=== PATIENT | male | born 1980 | race African-American/Black ===

== ENCOUNTER 2023-03-05 22:09 | Inpatient (IN) | payer OTHER ==
--- OUTSIDE RECORDS SUMMARY | 2023-03-05 22:19 | XMS REPORT | Continuity of Care Document ---
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 Acute respirator y failure with hypoxia Problem Active [facility] Obstructiv e sleep apnea with use of bilevel positive airway pressure (BPAP) Problem Active [facility] Chest pain Problem Active [facility] Malignant hypertensi on Problem Active [facility] Acute respirator y failure with hypoxia and hypercapni a Problem Active [facility] Morbid obesity Problem Active [facility] Class 3 severe obesity with serious comorbidit y and body mass index (BMI) of 60.0 to 69.[address] [facility] Prediabete s Problem Active [facility] Noncomplia nce Problem Active [facility] Pneumonia due to severe acute respirator y syndrome coronaviru s 2 (SARS-CoV- 2) [address] [facility] Hypertensi on Problem Active [facility] Sleep apnea Problem Active [facility] Dyspnea Problem Inactiv e [facility] Infection due to severe acute respirator y syndrome coronaviru s 2 (SARS-CoV- 2) Problem Inactiv e [facility] Allergies, Adverse Reactions, Alerts Allergy Name Allergy Type Status Severity Reaction(s) Onset Date Inactive Date Treating Clinician Comments Source Penicill in Allergy to substanc e Active Unknown 2017-03 00:00: 00 [facility] Social History Social Habit Start Date Stop Date Quantity Comments Source Sex Assigned At 1980 00:00:00 1980 00:00:00 Male [facility] Smoking Status Start Date Stop Date Source Smokes tobacco daily (finding) 2020-07-12 02:30:00 [facility] Medications Ordered Medication Name Filled Medication Name Start Date Stop Date Current Medication? Ordering Clinician Indication Dosage Frequency Signature (SIG) Comments Components Source Albuterol 90 Mcg/Act Hfa Inh (Proair Hfa Inh) 8.5 Gm HFA.AER.AD 07-16 09:30: 00 No 1 Every 4 Hours as needed for Dyspnea [facility] Dexamethaso ne (Decadron) 6 Mg TAB 07-16 09:30: 00 No 6mg Daily With Breakfast [facility] Acetazolami de (Diamox) 250 Mg TAB 2017-03 16:49: 00 07-12 00:00 :[address] [facility] Amlodipine Besylate (Norvasc) 10 Mg TAB 2017-03 16:49: 00 07-12 00:00 :00 No 10mg Every Morning [facility] Hydrochloro thiazide (Hydrodiuri l) 25 Mg TAB 2017-03 16:49: 00 07-12 00:00 :00 No 25mg Every Morning [facility] Vital Signs Vital Name Observation Time Observation Value Comments S ource BP Diastolic 2020-07-16 12:02:00 78 mm[Hg] [facility] BP Systolic 2020-07-16 12:02:00 134 mm[Hg] [facility] Heart Rate 2020-07-16 12:02:00 67 /min [facility] Respiratory rate 2020-07-16 12:02:00 18 /min [facility] Body Temperature 2020-07-16 12:02:00 99.0 [degF] [facility] BP Diastolic 2020-07-16 10:07:00 78 mm[Hg] [facility] BP Systolic 2020-07-16 10:07:00 134 mm[Hg] [facility] Heart Rate 2020-07-16 10:07:00 64 /min [facility] Respiratory rate 2020-07-16 10:07:00 17 /min [facility] Body Temperature 2020-07-16 10:07:00 99.2 [degF] [facility] Heart Rate 2020-07-16 09:50:00 66 /min [facility] Heart Rate 2020-07-16 07:18:00 70 /min [facility] Respiratory rate 2020-07-16 07:18:00 18 /min [facility] BP Diastolic 2020-07-16 03:30:00 88 mm[Hg] [facility] BP Systolic 2020-07-16 03:30:00 151 mm[Hg] [facility] Heart Rate 2020-07-16 03:30:00 54 /min [facility] Respiratory rate 2020-07-16 03:30:00 12 /min [facility] Body Temperature 2020-07-16 03:30:00 97.4 [degF] [facility] BP Diastolic 2020-07-15 23:43:00 80 mm[Hg] [facility] BP Systolic 2020-07-15 23:43:00 157 mm[Hg] [facility] 2020-07-15 23:43:00 72 /min [facility] Respiratory rate 2020-07-15 23:43:00 12 /min [facility] Body Temperature 2020-07-15 23:43:00 98.1 [degF] [facility] Heart Rate 2020-07-15 20:50:00 89 /min [facility] Respiratory rate 2020-07-15 20:50:00 22 /min [facility] BP Diastolic 2020-07-15 19:52:00 93 mm[Hg] [facility] BP Systolic 2020-07-15 19:52:00 146 mm[Hg] [facility] Heart Rate 2020-07-15 19:52:00 64 /min [facility] Respiratory rate 2020-07-15 19:52:00 12 /min [facility] Body Temperature 2020-07-15 19:52:00 98.3 [degF] [facility] Heart Rate 2020-07-15 19:00:00 85 /min [facility] BP Diastolic 2020-07-15 16:00:00 75 mm[Hg] [facility] BP Systolic 2020-07-15 16:00:00 140 mm[Hg] [facility] Heart Rate 2020-07-15 16:00:00 82 /min [facility] Respiratory rate 2020-07-15 16:00:00 17 /min [facility] Body Temperature 2020-07-15 16:00:00 98.1 [degF] [facility] Heart Rate 2020-07-15 13:50:00 88 /min [facility] Respiratory rate 2020-07-15 13:50:00 20 /min [facility] BP Diastolic 2020-07-15 12:00:00 82 mm[Hg] [facility] BP Systolic 2020-07-15 12:00:00 142 mm[Hg] [facility] Heart Rate 2020-07-15 12:00:00 62 /min [facility] Respiratory rate 2020-07-15 12:00:00 17 /min [facility] Body Temperature 2020-07-15 12:00:00 98.0 [degF] [facility] Heart Rate 2020-07-15 09:32:00 65 /min [facility] BP Diastolic 2020-07-15 08:00:00 81 mm[Hg] [facility] BP Systolic 2020-07-15 08:00:00 140 mm[Hg] [facility] Heart Rate 2020-07-15 08:00:00 65 /min [facility] Respiratory rate 2020-07-15 08:00:00 17 /min [facility] Heart Rate 2020-07-15 07:50:00 60 /min [facility] Respiratory rate 2020-07-15 07:50:00 26 /min [facility] Heart Rate 2020-07-15 04:55:00 82 /min [facility] BP Diastolic 2020-07-15 03:57:00 88 mm[Hg] [facility] BP Systolic 2020-07-15 03:57:00 159 mm[Hg] [facility] Heart Rate 2020-07-15 03:57:00 54 /min [facility] Respiratory rate 2020-07-15 03:57:00 12 /min [facility] Body Temperature 2020-07-15 03:57:00 97.3 [degF] [facility] Heart Rate 2020-07-15 01:22:00 80 /min [facility] Respiratory rate 2020-07-15 01:22:00 20 /min [facility] BP Diastolic 2020-07-14 23:15:00 92 mm[Hg] [facility] BP Systolic 2020-07-14 23:15:00 136 mm[Hg] [facility] Heart Rate 2020-07-14 23:15:00 77 /min [facility] Respiratory rate 2020-07-14 23:15:00 12 /min [facility] Body Temperature 2020-07-14 23:15:00 97.8 [degF] [facility] Heart Rate 2020-07-14 21:02:00 88 /min [facility] Respiratory rate 2020-07-14 21:02:00 20 /min [facility] Heart Rate 2020-07-14 20:10:00 88 /min [facility] BP Diastolic 2020-07-14 19:57:00 92 mm[Hg] [facility] BP Systolic 2020-07-14 19:57:00 160 mm[Hg] [facility] Heart Rate 2020-07-14 19:57:00 70 /min [facility] Respiratory rate 2020-07-14 19:57:00 14 /min [facility] Body Temperature 2020-07-14 19:57:00 99.1 [degF] [facility] BP Diastolic 2020-07-14 16:00:00 81 mm[Hg] [facility] BP Systolic 2020-07-14 16:00:00 137 mm[Hg] [facility] Heart Rate 2020-07-14 16:00:00 69 /min [facility] Respiratory rate 2020-07-14 16:00:00 19 /min [facility] Body Temperature 2020-07-14 16:00:00 98.4 [degF] [facility] Heart Rate 2020-07-14 14:22:00 50 /min [facility] Respiratory rate 2020-07-14 14:22:00 18 /min [facility] BP Diastolic 2020-07-14 12:00:00 84 mm[Hg] [facility] BP Systolic 2020-07-14 12:00:00 150 mm[Hg] [facility] Heart Rate 2020-07-14 12:00:00 66 /min [facility] Respiratory rate 2020-07-14 12:00:00 21 /min [facility] Body Temperature 2020-07-14 12:00:00 97.6 [degF] [facility] Heart Rate 2020-07-14 08:57:00 98 /min [facility] Heart Rate 2020-07-14 08:14:00 98 /min [facility] Respiratory rate 2020-07-14 08:14:00 18 /min [facility] BP Diastolic 2020-07-14 08:00:00 92 mm[Hg] [facility] BP Systolic 2020-07-14 08:00:00 149 mm[Hg] [facility] Heart Rate 2020-07-14 08:00:00 62 /min [facility] Respiratory rate 2020-07-14 08:00:00 20 /min [facility] Body Temperature 2020-07-14 08:00:00 97.1 [degF] [facility] BP Diastolic 2020-07-14 06:03:00 87 mm[Hg] [facility] BP Systolic 2020-07-14 06:03:00 147 mm[Hg] [facility] Heart Rate 2020-07-14 06:03:00 57 /min [facility] Respiratory rate 2020-07-14 06:03:00 20 /min [facility] BP Diastolic 2020-07-14 03:41:00 94 mm[Hg] [facility] BP Systolic 2020-07-14 03:41:00 144 mm[Hg] [facility] Heart Rate 2020-07-14 03:41:00 56 /min [facility] Respiratory rate 2020-07-14 03:41:00 19 /min [facility] Body Temperature 2020-07-14 03:41:00 98.6 [degF] [facility] Heart Rate 2020-07-14 02:24:00 74 /min [facility] Heart Rate 2020-07-14 01:36:00 75 /min [facility] Respiratory rate 2020-07-14 01:36:00 20 /min [facility] BP Diastolic 2020-07-14 00:00:00 78 mm[Hg] [facility] BP Systolic 2020-07-14 00:00:00 123 mm[Hg] [facility] Heart Rate 2020-07-14 00:00:00 72 /min [facility] Respiratory rate 2020-07-14 00:00:00 19 /min [facility] Body Temperature 2020-07-14 00:00:00 98.4 [degF] [facility] BP Diastolic 2020-07-13 20:30:00 77 mm[Hg] [facility] BP Systolic 2020-07-13 20:30:00 136 mm[Hg] [facility] Heart Rate 2020-07-13 20:30:00 79 /min [facility] Respiratory rate 2020-07-13 20:30:00 19 /min [facility] BP Diastolic 2020-07-13 19:56:00 77 mm[Hg] [facility] BP Systolic 2020-07-13 19:56:00 136 mm[Hg] [facility] Heart Rate 2020-07-13 19:56:00 79 /min [facility] Respiratory rate 2020-07-13 19:56:00 19 /min [facility] Body Temperature 2020-07-13 19:56:00 98.4 [degF] [facility] Heart Rate 2020-07-13 19:51:00 81 /min [facility] Respiratory rate 2020-07-13 19:51:00 20 /min [facility] BP Diastolic 2020-07-13 16:00:00 81 mm[Hg] [facility] BP Systolic 2020-07-13 16:00:00 138 mm[Hg] [facility] Heart Rate 2020-07-13 16:00:00 82 /min [facility] Respiratory rate 2020-07-13 16:00:00 20 /min [facility] Body Temperature 2020-07-13 16:00:00 98.6 [degF] [facility] Heart Rate 2020-07-13 15:22:00 99 /min [facility] Respiratory rate 2020-07-13 15:22:00 20 /min [facility] BP Diastolic 2020-07-13 12:00:00 64 mm[Hg] [facility] BP Systolic 2020-07-13 12:00:00 129 mm[Hg] [facility] Heart Rate 2020-07-13 12:00:00 66 /min [facility] Respiratory rate 2020-07-13 12:00:00 20 /min [facility] Body Temperature 2020-07-13 12:00:00 98.7 [degF] [facility] Heart Rate 2020-07-13 08:36:00 68 /min [facility] BP Diastolic 2020-07-13 08:00:00 86 mm[Hg] [facility] BP Systolic 2020-07-13 08:00:00 156 mm[Hg] [facility] Heart Rate 2020-07-13 08:00:00 68 /min [facility] Respiratory rate 2020-07-13 08:00:00 18 /min [facility] Body Temperature 2020-07-13 08:00:00 98.1 [degF] [facility] BP Diastolic 2020-07-13 04:25:00 61 mm[Hg] [facility] BP Systolic 2020-07-13 04:25:00 146 mm[Hg] [facility] Heart Rate 2020-07-13 04:25:00 68 /min [facility] Respiratory rate 2020-07-13 04:25:00 16 /min [facility] Heart Rate 2020-07-13 01:52:00 75 /min [facility] Respiratory rate 2020-07-13 01:52:00 18 /min [facility] BP Diastolic 2020-07-12 23:30:00 75 mm[Hg] [facility] BP Systolic 2020-07-12 23:30:00 126 mm[Hg] [facility] Heart Rate 2020-07-12 23:30:00 81 /min [facility] Respiratory rate 2020-07-12 23:30:00 20 /min [facility] Body Temperature 2020-07-12 23:30:00 97.5 [degF] [facility] Heart Rate 2020-07-12 21:00:00 85 /min [facility] Respiratory rate 2020-07-12 21:00:00 20 /min [facility] BP Diastolic 2020-07-12 19:40:00 79 mm[Hg] [facility] BP Systolic 2020-07-12 19:40:00 139 mm[Hg] [facility] Heart Rate 2020-07-12 19:40:00 81 /min [facility] Respiratory rate 2020-07-12 19:40:00 18 /min [facility] Body Temperature 2020-07-12 19:40:00 98.4 [degF] [facility] Heart Rate 2020-07-12 19:00:00 85 /min [facility] BP Diastolic 2020-07-12 16:01:00 73 mm[Hg] [facility] BP Systolic 2020-07-12 16:01:00 140 mm[Hg] [facility] Heart [facility] 2020-07-12 16:01:00 80 /min [facility] Respiratory rate 2020-07-12 16:01:00 22 /min [facility] BP Diastolic 2020-07-12 16:00:00 63 mm[Hg] [facility] BP Systolic 2020-07-12 16:00:00 132 mm[Hg] [facility] Heart Rate 2020-07-12 16:00:00 76 /min [facility] Respiratory rate 2020-07-12 16:00:00 22 /min [facility] Body Temperature 2020-07-12 16:00:00 97.9 [degF] [facility] Heart Rate 2020-07-12 12:39:00 89 /min [facility] Respiratory rate 2020-07-12 12:39:00 16 /min [facility] BP Diastolic 2020-07-12 12:01:00 105 mm[Hg] [facility] BP Systolic 2020-07-12 12:01:00 155 mm[Hg] [facility] Heart Rate 2020-07-12 12:01:00 89 /min [facility] Body Temperature 2020-07-12 12:01:00 97.6 [degF] [facility] BP Diastolic 2020-07-12 11:02:00 64 mm[Hg] [facility] BP Systolic 2020-07-12 11:02:00 130 mm[Hg] [facility] Heart [facility] 2020-07-12 11:02:00 86 /min [facility] BP Diastolic 2020-07-12 10:45:00 113 mm[Hg] [facility] BP Systolic 2020-07-12 10:45:00 163 mm[Hg] [facility] Heart Rate 2020-07-12 10:45:00 81 /min [facility] BP Diastolic 2020-07-12 10:30:00 97 mm[Hg] [facility] BP Systolic 2020-07-12 10:30:00 150 mm[Hg] [facility] Heart Rate 2020-07-12 10:30:00 74 /min [facility] BP Diastolic 2020-07-12 10:15:00 74 mm[Hg] [facility] BP Systolic 2020-07-12 10:15:00 136 mm[Hg] [facility] Heart Rate 2020-07-12 10:15:00 92 /min [facility] BP Diastolic 2020-07-12 10:00:00 97 mm[Hg] [facility] BP Systolic 2020-07-12 10:00:00 158 mm[Hg] [facility] Heart Rate 2020-07-12 10:00:00 98 /min [facility] BP Diastolic 2020-07-12 08:00:00 96 mm[Hg] [facility] BP Systolic 2020-07-12 08:00:00 140 mm[Hg] [facility] Heart Rate 2020-07-12 08:00:00 96 /min [facility] Respiratory rate 2020-07-12 08:00:00 20 /min [facility] Body Temperature 2020-07-12 08:00:00 97.7 [degF] [facility] Heart Rate 2020-07-12 02:30:00 94 /min [facility] BP Diastolic 2020-07-12 02:20:00 89 mm[Hg] [facility] BP Systolic 2020-07-12 02:20:00 155 mm[Hg] [facility] Heart Rate 2020-07-12 02:20:00 94 /min [facility] Respiratory rate 2020-07-12 02:20:00 20 /min [facility] Body Temperature 2020-07-12 02:20:00 98.1 [degF] [facility] BP Diastolic 2020-07-12 01:45:00 77 mm[Hg] [facility] BP Systolic 2020-07-12 01:45:00 134 mm[Hg] [facility] Heart Rate 2020-07-12 01:45:00 84 /min [facility] Respiratory rate 2020-07-12 01:45:00 22 /min [facility] Body Temperature 2020-07-12 01:45:00 97.9 [degF] [facility] BP Diastolic 2020-07-12 00:30:00 77 mm[Hg] [facility] BP Systolic 2020-07-12 00:30:00 134 mm[Hg] [facility] Heart Rate 2020-07-12 00:30:00 84 /min [facility] Respiratory rate 2020-07-12 00:30:00 22 /min [facility] Body Temperature 2020-07-12 00:30:00 97.9 [degF] [facility] Heart Rate 2020-07-11 23:35:00 79 /min [facility] Respiratory rate 2020-07-11 23:35:00 14 /min [facility] BP Diastolic 2020-07-11 23:30:00 90 mm[Hg] [facility] BP Systolic 2020-07-11 23:30:00 151 mm[Hg] [facility] Heart Rate 2020-07-11 23:30:00 85 /min [facility] Heart Rate 2020-07-11 23:28:00 72 /min [facility] Respiratory rate 2020-07-11 23:28:00 14 /min [facility] BP Diastolic 2020-07-11 23:00:00 75 mm[Hg] [facility] BP Systolic 2020-07-11 23:00:00 158 mm[Hg] [facility] Heart Rate 2020-07-11 23:00:00 77 /min [facility] Heart Rate 2020-07-11 22:58:00 77 /min [facility] Respiratory rate 2020-07-11 22:58:00 13 /min [facility] BP Diastolic 2020-07-11 22:30:00 77 mm[Hg] [facility] BP Systolic 2020-07-11 22:30:00 169 mm[Hg] [facility] Heart Rate 2020-07-11 22:30:00 80 /min [facility] BP Diastolic 2020-07-11 22:28:00 82 mm[Hg] [facility] [employer] BP Systolic 2020-07-11 22:28:00 168 mm[Hg] [facility] [employer] Heart Rate 2020-07-11 22:28:00 82 /min [facility] Respiratory rate 2020-07-11 22:28:00 13 /min [facility] [employer] BP Diastolic 2020-07-11 21:35:00 95 mm[Hg] [facility] [employer] BP Systolic 2020-07-11 21:35:00 163 mm[Hg] [facility] [employer] Heart Rate 2020-07-11 21:35:00 90 /min [facility] Respiratory rate 2020-07-11 21:35:00 28 /min [facility] [employer] Body Temperature 2020-07-11 21:35:00 97.6 [degF] [facility] Procedures Procedure Date / Time Performed Performing Clinicia n Source Arterial puncture 2020-07-13 00:00:00 [facility] Occupational therapy evaluation and treatment 2020-07-12 00:00:00 [facility] Physical therapy evaluation and treatment 2020-07-12 00:00:00 [facility] ECG (electrocardiogram) 2020-07-11 00:00:00 [facility] [employer] X-ray of chest, two views 2020-07-11 00:00:00 [facility] [employer] Encounters Start Date/Time End Date/Time Encounter Type Admission Type Attending [facility] Care Department Encounter ID Source 2020-07-11 21:24:00 2020-07-16 14:13:00 Discharged Inpatient [facility] [id number] [facility] [employer] Results Test Description Test Time Test Comments Results Result Co mments Source [facility] [employer] D-dimer FEU [id number] 03:42:00* Test Item Value Reference Range Interpretation Comme [facility] D-Dimer (test code = 00667-7) 307 0-243 [facility] (moles/volume)2020-07-14 03:42:00* Test Item Value Reference Range Interpretation Comme nts Sodium Level (test code = 2951-2) 134 136-145 [facility] potassium [facility] (moles/volume)2020-07-14 03:42:00* Test Item Value Reference Range Interpretation Comme nts Potassium Level (test code = 2823-3) 4.3 3.5-5.1 [facility] chloride measurement (moles/volume)2020-07-14 03:42:00* Test Item Value Reference Range Interpretation Comme nts Chloride Level (test code = 2075-0) 93 101-111 [facility]2 [id number] 03:42:00* Test Item Value Reference Range Interpretation Comme nts Carbon Dioxide Level (test c ode = 2027-11) 35 21-31 [facility] plasma urea nitrogen measurement (mass/volume)2020-07-14 03:42:00* Test Item Value Reference Range Interpretation Comme nts Blood Urea Nitrogen (test co de = 3094-0) 15 7-25 [facility] plasma creatinine measurement (mass/volume)2020-07-14 03:42:00* Test Item Value Reference Range Interpretation Comme nts Creatinine (test code = 2160-0) 0.7 0.7-1.3 [facility]GFR/BSA pred.black SerPlBld [id number] 03:42:00* Test Item Value Reference Range Interpretation Comme nts Estimated GFR ( Ameri can) (test code = 85865-2) >60 [facility]EGFR non- [id number] 03:42:00* Test Item Value Reference Range Interpretation Comme nts Estimated GFR (Non- A merican (test code = 95805-7) >60 [facility] or plasma glucose measurement (mass/volume)2020-07-14 03:42:00* Test Item Value Reference Range Interpretation Comme nts Glucose Level (test code = 2345-7) 196 70-110 [facility] or plasma calcium measurement (mass/volume)2020-07-14 03:42:00* Test Item Value Reference Range Interpretation Comme nts Calcium Level (test code = 29397-4) 9.2 8.6-10.3 [facility] or plasma magnesium measurement (mass/volume)2020-07-14 03:42:00* Test Item Value Reference Range Interpretation Comme nts Magnesium Level (test code = 32570-5) 1.9 1.7-2.5 [facility] or plasma total bilirubin measurement (mass/volume) 2020-07-14 03:42:00* Test Item Value Reference Range Interpretation Comme nts Total Bilirubin (test code = 1975-2) 0.4 0.3-1.0 [facility] or plasma aspartate aminotransferase measurement (enzymatic activity/volume)2020-07-14 03:42:00* Test Item Value Reference Range Interpretation Comme nts Aspartate Amino Transf (AST/ SGOT) (test code = 1920-8) 11 12-39 [facility] or plasma alanine aminotransferase measurement (enzymatic activity/volume)2020-07-14 03:42:00* Test Item Value Reference Range Interpretation Comme nts Alanine Aminotransferase (AL T/SGPT) (test code = 1742-6) 14 17-63 [facility] or plasma protein measurement (mass/volume)2020-07-14 03:42:00* Test Item Value Reference Range Interpretation Comme nts Total Protein (test code = 2885-2) 8.1 6.4-8.9 [facility] or plasma albumin measurement (mass/volume)2020-07-14 03:42:00* Test Item Value Reference Range Interpretation Comme nts Albumin (test code = 1751-7) 3.4 3.5-5.7 [facility] or plasma alkaline phosphatase measurement (enzymatic activity/volume)2020-07-14 03:42:00* Test Item Value Reference Range Interpretation Comme nts Alkaline Phosphatase (test c ode = 6768-6) 113 34-104 [facility] or plasma ferritin measurement (mass/volume)2020-07-14 03:42:00* Test Item Value Reference Range Interpretation Comme nts Ferritin (test code = 2276-4) 56 23.9-336.2 [facility] or plasma C reactive protein measurement (mass/volume) 2020-07-14 03:42:00* Test Item Value Reference Range Interpretation Comme nts C-Reactive Protein, Quantita tive (test code = 1988-5) 1.79 0.02-0.75 [facility] Health[facility]um or plasma procalcitonin measurement (mass/volume)2020-07-14 03:42:00* Test Item Value Reference Range Interpretation Comme nts Procalcitonin (test code = 10251-5) 0.01 [facility] HealthAutomated blood leukocyte count (number/volume)2020-07-14 03:42:00* Test Item Value Reference Range Interpretation Comme [facility] White Blood Count (test code = 6690-2) 15.4 3.6-11.2 [facility] HealthBlood erythrocytes automated count (number/volume)2020-07-14 03:42:00* Test Item Value Reference Range Interpretation Comme [facility] Red Blood Count (test code = 789-8) 5.62 4.06-5.63 [facility] Health[facility] hemoglobin measurement (mass/volume)2020-07-14 03:42:00* Test Item Value Reference Range Interpretation Comme [facility] Hemoglobin (test code = 718-7) 16.1 12.5-16.5 [facility] HealthAutomated blood hematocrit (volume fraction)2020-07-14 03:42:00* Test Item Value Reference Range Interpretation Comme [facility] Hematocrit (test code = 4544-3) 49.3 36.7-47.1 [facility] HealthAutomated erythrocyte mean corpuscular volume (MCV) measurement 2020-07-14 03:42:00* Test Item Value Reference Range Interpretation Comme [facility] Mean Corpuscular Volume (cara t code = 787-2) 87.7 78-98 [facility] HealthAutomated erythrocyte mean corpuscular hemoglobin (mass per erythrocyte)2020-07-14 03:42:00* Test Item Value Reference Range Interpretation Comme [facility] Mean Corpuscular Hemoglobin (test code = 785-6) 28.7 26-34 [facility] HealthAutomated erythrocyte mean corpuscular hemoglobin concentration (MCHC) measurement (mass/volume)2020-07-14 03:42:00* Test Item Value Reference Range Interpretation Comme [facility] Mean Corpuscular Hemoglobin Concent (test code = 786-4) 32.7 31-35 [facility] HealthAutomated erythrocyte distribution width bzpci8089-38-44 03:42:00 * Test Item Value Reference Range Interpretation Comme [facility] Red Cell Distribution Width (test code = 788-0) 16.4 12.5-14.5 [facility] HealthAutomated blood platelet count (count/volume)2020-07-14 03:42:00 * Test Item Value Reference Range Interpretation Comme nts Platelet Count (test code = 777-3) 383 130-400 [facility] HealthAutomated blood platelet mean volume lkynkwsgulf2440-58-21 03:42:00* Test Item Value Reference Range Interpretation Comme nts Mean Platelet Volume (test c ode = 76881-8) 7.6 7.4-10.4 [facility] HealthAutomated blood neutrophil count as percentage of total dcneynazgz5778-78-46 03:42:00* Test Item Value Reference Range Interpretation Comme nts Neutrophils (%) (Auto) (test code = 770-8) 86.1 43.3-76.6 [facility] HealthAutomated blood lymphocyte count as percentage of total srlotflzby1097-03-41 03:42:00* Test Item Value Reference Range Interpretation Comme nts Lymphocytes (%) (Auto) (test code = 736-9) 7.0 16-43.5 [facility] HealthAutomated blood monocyte count as percentage of total leukocytes 2020-07-14 03:42:00* Test Item Value Reference Range Interpretation Comme nts Monocytes (%) (Auto) (test c ode = 5905-5) 6.3 4.5-12.5 [facility] HealthAutomated blood eosinophil count as percentage of total dultmxasds7886-13-80 03:42:00* Test Item Value Reference Range Interpretation Comme nts Eosinophils (%) (Auto) (test code = 713-8) 0.1 0.6-7.9 [facility] HealthAutomated blood basophil count as percentage of total leukocytes 2020-07-14 03:42:00* Test Item Value Reference Range Interpretation Comme nts Basophils (%) (Auto) (test c ode = 706-2) 0.5 0.2-1.4 [facility] HealthAutomated blood neutrophil count (number/volume)2020-07-14 03:42:00* Test Item Value Reference Range Interpretation Comme nts Neutrophils # (Auto) (test c ode = 751-8) 13.30 1.8-7.8 [facility] HealthAutomated blood lymphocyte count (number/volume)2020-07-14 03:42:00* Test Item Value Reference Range Interpretation Comme nts Lymphocytes # (Auto) (test c ode = 731-0) 1.10 1.0-3.0 [facility] count (number/volume)2020-07-14 03:42:00 * Test Item Value Reference Range Interpretation Comme [facility] Monocytes # (Auto) (test code = 742-7) 1.00 0.3-1.0 [facility]Autom[facility] blood eosinophil oqfwc7383-08-32 03:42:00* Test Item Value Reference Range Interpretation Comme [facility] Eosinophils # (Auto) (test c ode = 711-2) 0.00 0.0-0.5 [facility] CenterAutom[facility] blood basophil count (number/volume)2020-07-14 03:42:00 * Test Item Value Reference Range Interpretation Comme [facility] Basophils # (Auto) (test code = 704-7) 0.10 0.0-0.1 [facility] CenterDetermination of inhaled oxygen concentration (volume fraction) 2020-07-13 09:29:00* Test Item Value Reference Range Interpretation Comme [facility] FiO2 (test code = 3150-0) 69 [facility] CenterHepatitis B e ab ser/plas qual by MEI0072-50-56 09:29:00* Test Item Value Reference Range Interpretation Comme [facility] Blood Gas Liter Flow (test c ode = Blood Gas Liter Flow) 60.00 [facility] CenterArterial blood pH clvcqhaouhu4971-75-61 09:29:00* Test Item Value Reference Range Interpretation Comme [facility] Arterial Blood pH (test code = 2744-1) 7.23 7.350-7. 450 [facility] CenterArterial blood partial pressure of carbon hvhfqeh8738-61-55 09:29:00* Test Item Value Reference Range Interpretation Comme [facility] Arterial Blood Partial Press ure CO2 (test code = 2019-8) 99.6 35.0-45.0 [facility] CenterArterial blood partial pressure of oxygen txygcqpdruf5074-00-41 09:29:00* Test Item Value Reference Range Interpretation Comme [facility] Arterial Blood Partial Press ure O2 (test code = 2703-7) 105.4 84.0-105.0 [facility] CenterArterial blood bicarbonate measurement (moles/volume)2020-07-13 09:29:00* Test Item Value Reference Range Interpretation Comme [facility] Arterial Blood HCO3 (test co de = 1960-4) 40.6 22.0-26.0 [facility] HealthArterial blood base excess ibbboikmhnudx7633-83-36 09:29:00* Test Item Value Reference Range Interpretation Comme [facility] Arterial Blood Base Excess ( test code = 1925-7) 8.0 -2.0-2.0 [facility] HealthArterial blood hemoglobin hnxmkbqeheu5622-33-00 09:29:00* Test Item Value Reference Range Interpretation Comme [facility] Arterial Blood Hemoglobin (t est code = 582572670) 16.6 13.6-17.5 [facility] HealthArterial blood oxygen saturation hyyaesggqzu6952-46-98 09:29:00* Test Item Value Reference Range Interpretation Comme [facility] Arterial Blood Oxygen Satura tion (test code = 2708-6) 97.3 95.0-98.0 [facility] HealthArterial blood carboxyhemoglobin rgwlxpfxnzp8339-16-69 09:29:00* Test Item Value Reference Range Interpretation Comme [facility] Arterial Blood Carboxyhemogl obin (test code = 2030-5) 0.6 0.5-1.5 [facility] CenterAr[facility] blood methemoglobin/total ofsuaoukav2043-06-98 09:29:00 * Test Item Value Reference Range Interpretation Comme [facility] Arterial Blood Methemoglobin (test code = 2615-3) 0.50 0.4-1.1 [facility] HealthArterial blood oxyhemoglobin/total hemoglobin joost0113-52-01 09:29:00* Test Item Value Reference Range Interpretation Comme [facility] Arterial Blood Oxyhemoglobin (test code = 2714-4) 96.2 94.0-98.0 [facility] HealthHepatitis B e ab ser/plas qual by [id number] 09:29:00* Test Item Value Reference Range Interpretation Comme [facility] Oxygen Delivery Device (test code = Oxygen Delivery Device) hfnc [facility] HealthHepatitis B e ab ser/plas qual by [id number] 09:29:00* Test Item Value Reference Range Interpretation Comme [facility] Blood Gas Temperature (test code = Blood Gas Temperature) 37.0 [facility] HealthHepatitis B e ab ser/plas qual by MDG9230-36-82 09:29:00* Test Item Value Reference Range Interpretation Comme [facility] Blood Gas Specimen Type (cara t code = Blood Gas Specimen Type) BLDA [facility] HealthHepatitis B e ab ser/plas qual by [id number] 09:29:00* Test Item Value Reference Range Interpretation Comme nts Blood Gas Puncture Site (cara t code = Blood Gas Puncture Site) Right Radial DWAIN Mann's test prior to collection of specimen for arterial blood gas agwgytqblsg8138-73-28 09:29:00* Test Item Value Reference Range Interpretation Comme nts Charlie Test (test code = 46030-2) NA [facility] HealthComm critical results Rml5829-34-78 09:29:00* Test Item Value Reference Range Interpretation Comme nts Blood Gas Critical Value Panchito led To (test code = 09402-2) rn DWAIN HealthHepatitis B e ab ser/plas qual by BSM0704-64-09 09:29:00* Test Item Value Reference Range Interpretation Comme nts N/A (test code = N/A) Yes [facility] HealthHepatitis B e ab ser/plas qual by [id number] 09:29:00* Test Item Value Reference Range Interpretation Comme nts Arterial Blood Collected by (test code = Arterial Blood Collected by) sh DWAIN HealthHepatitis B e ab ser/plas qual by TJS8426-52-10 09:29:00* Test Item Value Reference Range Interpretation Comme [facility] Blood Audit Practice Intern Identific ation (test code = Blood Audit Practice Intern Identification) 22 [facility] HealthHepatitis B e ab ser/plas qual by VBW4320-09-82 09:29:00* Test Item Value Reference Range Interpretation Comme [facility] Blood Gas Instrument (test c ode = Blood Gas Instrument) [address] [facility] HealthUrine total bilirubin detection by test zkorn6454-51-85 07:55:00 * Test Item Value Reference Range Interpretation Comme nts Urine Bilirubin (test code = 5770-3) NEGATIVE NEGATIVE [facility] HealthUrine urobilinogen measurement by test strip (mass/volume) 2020-07-12 07:55:00* Test Item Value Reference Range Interpretation Comme nts Urine Urobilinogen (test cod e = 03251-2) 2+ 0.2-1.0 [facility] HealthUrine leukocyte esterase detection by cflpxtjo8366-68-62 07:55:00 * Test Item Value Reference Range Interpretation Comme nts Urine Leukocyte Esterase (te st code = 5799-2) TRACE NEGATIVE [facility] HealthUrine ascorbate measurement by test strip (mass/volume)2020-07-12 07:55:00* Test Item Value Reference Range Interpretation Comme nts Urine Ascorbic Acid Level (t est code = 5768-7) Negative Negative [facility] HealthAutomated urine sediment erythrocyte count by microscopy (number/high power field)2020-07-12 07:55:00* Test Item Value Reference Range Interpretation Comme nts Urine RBC (test code = 08295-2) 7 0-2 [facility] HealthAutomated leukocytes count in urine sediment by microscopy high power field (number/area)2020-07-12 07:55:00* Test Item Value Reference Range Interpretation Comme nts Urine WBC (test code = 5821-4) 17 0-5 [facility] HealthAutomated squamous epithelial cells count in urine sediment by microscopy low power field (number/area)2020-07-12 07:55:00* Test Item Value Reference Range Interpretation Comme nts Urine Squamous Epithelial Ce lls (test code = 65866-7) 1 0-5 [facility] HealthBacteria detection in urine sediment by light microscopy 2020-07-12 07:55:00* Test Item Value Reference Range Interpretation Comme nts Urine Bacteria (test code = 31850-4) TRACE NONE SEEN [facility] C[facility]nt 04 DYQ-Mnz0924-55-14 07:55:00* Test Item Value Reference Range Interpretation Comme nts Urine Culture Indicated (cara t code = 8265-1) NO [facility] HealthUrine color dwaickbycqjdz8762-08-23 07:55:00* Test Item Value Reference Range Interpretation Comme nts Urine Color (test code = 5778-6) YELLOW [facility] HealthManual urine appearance duftvvfqmlxal6930-04-60 07:55:00* Test Item Value Reference Range Interpretation Comme nts Urine Appearance (test code = 5767-9) Clear [facility] HealthUrine pH measurement by test ukfro6345-53-87 07:55:00* Test Item Value Reference Range Interpretation Comme nts Urine pH (test code = 5803-2) 6.0 5.0-8.0 [facility] HealthSp Gr Ur Rohpe7782-68-70 07:55:00* Test Item Value Reference Range Interpretation Comme nts Urine Specific [place] (test code = 5811-5) 1.028 1.005-1.030 [facility] HealthUrine protein measurement by automated test strip (mass/volume) 2020-07-12 07:55:00* Test Item Value Reference Range Interpretation Comme nts Urine Protein (test code = 67858-2) NEGATIVE NEGATIVE [facility] HealthUrine glucose measurement by test strip (mass/volume)2020-07-12 07:55:00* Test Item Value Reference Range Interpretation Comme nts Urine Glucose (UA) (test cod e = 5792-7) NEGATIVE NEGATIVE [facility] HealthUrine ketones measurement by test strip (mass/volume)2020-07-12 07:55:00* Test Item Value Reference Range Interpretation Comme nts Urine Ketones (test code = 5797-6) NEGATIVE NEGATIVE [facility] HealthUrine erythrocytes count by automated test strip (number/volume) 2020-07-12 07:55:00* Test Item Value Reference Range Interpretation Comme nts Urine Occult Blood (test cod e = 04445-3) NEGATIVE NEGATIVE [facility] HealthUrine nitrite detection by automated test vxulf7454-95-85 07:55:00* Test Item Value Reference Range Interpretation Comme nts Urine Nitrite (test code = 47881-0) NEGATIVE NEGATIVE [facility] HealthBlood estimated average glucose determination by estimation from glycated hemoglobin (mass/volume)2020-07-12 02:30:00* Test Item Value Reference Range Interpretation Comme [facility] Estimated Average Glucose (e AG) (test code = 03663-4) 145.5 74-118 [facility] Gyo0293-82-59 02:30:00* Test Item Value Reference Range Interpretation Comme [facility] Hemoglobin A1c (test code = 4548-4) 6.7 [facility] HealthSerum or plasma thyrotropin measurement with detection limit of 0.005 mIU/L or less (units/volume)2020-07-12 02:30:00* Test Item Value Reference Range Interpretation Comme [facility] Thyroid Stimulating Hormone (TSH) (test code = 14733-8) 2.09 0.34-5.60 [facility] HealthSerum or plasma lactate dehydrogenase measurement (enzymatic activity/volume) by lactate to pyruvate tlobnrwl1728-55-84 01:30:00* Test Item Value Reference Range Interpretation Comme [facility] Lactate Dehydrogenase (test code = 82667-2) 216 100-215 [facility] TkfVw-hMew4407-81-14 01:30:00* Test Item Value Reference Range Interpretation Comme nts Total Creatine Kinase (test code = 2157-6) 37 49-397 [facility] HealthTroponin I LomKg-jNqh9883-91-14 01:30:00* Test Item Value Reference Range Interpretation Comme nts Troponin I (test code = 28121-9) < 0.03 0.00-0.04 [facility] HealthSerum or plasma natriuretic peptide B measurement (mass/volume) 2020-07-12 01:30:00* Test Item Value Reference Range Interpretation Comme nts B-Type Natriuretic Peptide ( test code = 14145-9) 36 0-100 [facility] HealthProthrombin time (PT) in platelet poor jbzzhv6746-85-34 01:30:00 * Test Item Value Reference Range Interpretation Comme nts Prothrombin Time (test code = 5902-2) 13.2 9.6-13.6 [facility] HealthINR in Platelet poor plasma by Coagulation proxv5914-92-46 01:30:00* Test Item Value Reference Range Interpretation Comme nts Prothromb Time International Ratio (test code = 6301-6) 1.1 1.0-1.4 [facility] HealthLactate DgcFt-hAmg7540-48-13 21:57:00* Test Item Value Reference Range Interpretation Comme nts Lactic Acid Level (test code = 2524-7) 1.2 0.5-2.0 [facility] HealthHAdV DNA Nph Ql ALONDRA+xuz-kvzng1266-64-13 21:57:00* Test Item Value Reference Range Interpretation Comme nts Adenovirus (PCR) (test code = 74020-2) Not Detected NotDetected [facility] CenterKrtiuxITLF-DgV-4 RNA Resp Ql ALONDRA+ntzyx2629-31-06 21:57:00* Test Item Value Reference Range Interpretation Comme nts Coronavirus (COVID-19)(PCR) (test code = 16764-0) Detected NotDetected [facility] HealthHCoV 229E RNA Nph Ql ALONDRA+tla-xjssk5637-28-13 21:57:00* Test Item Value Reference Range Interpretation Comme nts Coronavirus Type 229E (PCR) (test code = 71610-5) Not Detected NotDetected [facility] CenterHCoV HKU1 RNA Nph Ql ALONDRA+bsm-sdwdg4418-80-13 21:57:00* Test Item Value Reference Range Interpretation Comme nts Coronavirus Type HKU1 (PCR) (test code = 88434-4) Not Detected NotDetected [facility] HealthHCoV NL63 RNA Nph Ql ALONDRA+kuu-qassl1764-86-13 21:57:00* Test Item Value Reference Range Interpretation Comme nts Coronavirus Type NL63 (PCR) (test code = 89539-9) Not Detected NotDetected [facility] HealthHCoV OC43 RNA Nph Ql ALONDRA+gln-xusjj7993-91-13 21:57:00* Test Item Value Reference Range Interpretation Comme nts Coronavirus Type OC43 (PCR) (test code = 00299-2) Not Detected NotDetected [facility] HealthhMPV RNA Nph Ql ALONDRA+ojc-gbntr8362-29-13 21:57:00* Test Item Value Reference Range Interpretation Comme nts Human Metapneumovirus (PCR) (test code = 86313-2) Not Detected NotDetected [facility] HealthRV+EV RNA Nph Ql ALONDRA+cse-tfmdk2803-28-13 21:57:00* Test Item Value Reference Range Interpretation Comme nts Enterovirus/Rhinovirus (PCR) (test code = 64494-4) Not Detected NotDetected [facility] HealthFLUAV RNA Nph Ql ALONDRA+vgy-nzfoe7407-60-13 21:57:00* Test Item Value Reference Range Interpretation Comme nts Influenza Virus Type A (PCR) (test code = 30466-4) Not Detected NotDetected [facility] HealthFLUAV H3 RNA Nph Ql ALONDRA+onq-trlbl0981-07-13 21:57:00* Test Item Value Reference Range Interpretation Comme nts Influenza Type A (H3) (PCR) (test code = 17889-1) Not Detected NotDetected [facility] HealthFLUAV H1 2009 [place]aker RNA Nph ALONDRA+ylz-azwoc7337-84-13 21:57:00* Test Item Value Reference Range Interpretation Comme nts Influenza Type A (H1N1/09) ( PCR) (test code = 12847-9) Not Detected NotDetected [facility] HealthFLUAV H1 RNA Nph Ql ALONDRA+lmv-tuern0244-09-13 21:57:00* Test Item Value Reference Range Interpretation Comme nts Influenza Type A (H1) (PCR) (test code = 81932-3) Not Detected NotDetected [facility] HealthFLUBV RNA Nph Ql ALONDRA+ccx-rdcmn6700-15-13 21:57:00* Test Item Value Reference Range Interpretation Comme nts Influenza Virus Type B (PCR) (test code = 39540-2) Not Detected NotDetected [facility] HealthHPIV1 RNA Nph Ql ALONDRA+wjt-oljmu1969-30-13 21:57:00* Test Item Value Reference Range Interpretation Comme nts Parainfluenza Type 1 (PCR) ( test code = 92266-4) Not Detected NotDetected [facility] HealthHPIV2 RNA Nph Ql ALONDRA+hss-gafrh9496-49-13 21:57:00* Test Item Value Reference Range Interpretation Comme nts Parainfluenza Type 2 (PCR) ( test code = 00332-6) Not Detected NotDetected [facility] HealthHPIV3 RNA Nph Ql ALONRDA+hck-qzezv1065-53-13 21:57:00* Test Item Value Reference Range Interpretation Comme nts Parainfluenza Type 3 (PCR) ( test code = 45829-0) Not Detected NotDetected [facility] HealthHPIV4 RNA Nph Ql ALONDRA+gxi-cnuyw3696-16-13 21:57:00* Test Item Value Reference Range Interpretation Comme nts Parainfluenza Type 4 (PCR) ( test code = 22557-9) Not Detected NotDetected [facility] HealthRSV RNA Nph Ql ALONDRA+jgh-upvfk3298-20-13 21:57:00* Test Item Value Reference Range Interpretation Comme nts Respiratory Syncytial Virus (PCR) (test code = 39355-8) Not Detected NotDetected [facility] CenterB pert.PT prom reg Nph Ql ALONDRA+oqq-emxrt9536-34-13 21:57:00* Test Item Value Reference Range Interpretation Comme nts Bordetella pertussis DNA (PC R) (test code = 81776-1) Not Detected NotDetected [facility] CenterB parap ZF9639 DNA Nph Ql ALONDRA+tye-digzx8981-28-13 21:57:00* Test Item Value Reference Range Interpretation Comme nts Bordetella parapertussis DNA (PCR) (test code = 26051-9) Not Detected NotDetected [facility] CenterC pneum DNA Nph Ql ALONDRA+kbi-cmicc8462-94-13 21:57:00* Test Item Value Reference Range Interpretation Comme nts Chlamydia pneumoniae DNA (PC R) (test code = 02178-4) Not Detected NotDetected DWAIN CarvajalM pneumo DNA Nph Ql ALONDRA+cit-sthzc2415-52-13 21:57:00* Test Item Value Reference Range Interpretation Comme nts Mycoplasma pneumoniae DNA (P CR) (test code = 80531-9) Not Detected NotDetected DWAIN 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-87-71 21:57:00* Test Item Value Reference Range Interpretation Comme nts N/A (test code = 52321-7) No DWAIN CarvajalPatient has symptoms for condition of qqqknvky9880-50-51 21:57:00 * Test Item Value Reference Range Interpretation Comme nts N/A (test code = 94718-9) Yes DWAIN CarvajalPt [facility] centeredcg4999-32-30 21:57:00* Test Item Value Reference Range Interpretation Comme nts N/A (test code = 20963-2) Yes DWAIN CarvajalPatient was admitted to ICU for fkdatwmbs1815-11-41 21:57:00* Test Item Value Reference Range Interpretation Comme nts N/A (test code = 55996-7) No DWAIN CarvajalPatient resides in congregate care bozawbr8833-63-52 21:57:00* Test Item Value Reference Range Interpretation Comme nts N/A (test code = 99113-4) No DWAIN HealthBacterial blood dkzearl8912-53-70 21:57:00* Test Item Value Reference Range Interpretation Comme nts Blood Culture (test code = 600-7) No growth after 5 days [facility] ULO-Mzf1762-99-13 21:55:00* Test Item Value Reference Range Interpretation Comme nts N/A (test code = 8264-4) YES DWAIN [facility]alSerlovel[facility] Cmnt QJG-Fft4016-24-13 21:55:00* Test Item Value Reference Range Interpretation Comme nts Manual Differential (test co de = 8265-1) YES DWAIN CarvajalManual blood neutrophils/100 xcudvzmerc1859-90-62 21:55:00* Test Item Value Reference Range Interpretation Comme nts Neutrophils % (Manual) (test code = 82437-4) 67 52-62 [facility] HealthManual blood band neutrophils form/100 tbwfgmzwuc9476-01-89 21:55:00* Test Item Value Reference Range Interpretation Comme nts Band Neutrophils % (Manual) (test code = 764-1) 11 5-11 [facility] HealthManual blood lymphocytes/100 xqneqxofmx7481-93-59 21:55:00* Test Item Value Reference Range Interpretation Comme nts Lymphocytes % (Manual) (test code = 737-7) 14 35-43 [facility] HealthManual blood monocyte count as percentage of leukocytes (number fraction)2020-07-11 21:55:00* Test Item Value Reference Range Interpretation Comme nts Monocytes % (Manual) (test c ode = 744-3) 4 3-5 [facility] HealthManual blood eosinophil count as percentage of total leukocytes 2020-07-11 21:55:00* Test Item Value Reference Range Interpretation Comme nts Eosinophils % (Manual) (test code = 714-6) 3 2-4 [facility] HealthBlood plasma cells/100 inkfvezvmz9181-40-68 21:55:00* Test Item Value Reference Range Interpretation Comme nts Plasma Cells % (test code = 13176-8) 1 [facility] HealthBlood platelets count by estimate (number/volume)2020-07-11 21:55:00* Test Item Value Reference Range Interpretation Comme nts Platelet Estimate (test code = 43383-3) Adequate Adequate [facility] HealthBlood erythrocyte morphology finding cezqrzifwxkuqd1131-08-31 21:55:00* Test Item Value Reference Range Interpretation Comme nts Red Blood Cell Morphology (t est code = 6742-1) Abnormal Normal [facility] HealthBlood anisocytosis detection by light goptvairth3301-08-41 21:55:00* Test Item Value Reference Range Interpretation Comme nts Anisocytosis (test code = 702-1) 1+ [facility] HealthBlood polychromasia detection by light nbqxkkftpm2816-43-53 21:55:00* Test Item Value Reference Range Interpretation Comme nts Polychromasia (test code = 91408-3) 1+ [facility] HealthBlood ovalocytes detection by light uucgzeitkw3025-42-41 21:55:00 * Test Item Value Reference Range Interpretation Comme nts Ovalocytes (test code = 774-0) 1+ [facility] HealthWhole blood leukocyte morphology finding nwllpqjtiialhg0486-98-72 21:55:00* Test Item Value Reference Range Interpretation Comme nts White Blood Cell Morphology (test code = 46043-1) Abnormal Normal [facility] HealthBlood smudge cells detection by light tevmjhxiqt4907-58-86 21:55:00* Test Item Value Reference Range Interpretation Comme nts Smudge Cells (test code = 7798-2) Slight [facility] HealthBacteria identification by respiratory cxbtpcy1738-96-28 21:45:00 * Test Item Value Reference Range Interpretation Comme nts Respiratory Culture (test code = 82560-0) Str dysgalactiae S equisimilis [facility]
[2023-03-05] MEDS ORDERED: IPRATROPIUM BROM 0.5MG/2.5ML ONE (23:17)
[2023-03-05] MEDS ORDERED: ALBUTEROL 2.5 MG/3 ML NEB SOL ONE (23:17)
[2023-03-05] MEDS ORDERED: METHYLPREDNISOLONE 125 MG INJ ONE (23:17)
[2023-03-05 23:31] LABS: Absolute Lymphocytes (CBC) 1.9 K/uL (0.7-4.9); Hematocrit 41.1 % (39.6-49.0); Lymphocytes % 22.5 % (15.3-44.8); MCV 84.7 fL (80-100); MPV 7.7 fL (7.6-11.3); Platelets 220 thou/uL (152-406); RBC Red Blood Cell Count 4.85 M/uL (4.33-5.43)
[2023-03-06] LABS: Potassium 3.6 mEq/L (3.5-5.1); Troponin High Sensitivity 15.1 pg/mL (<58.9)
[2023-03-06 00:24] LABS: SARS-COV-2 RT PCR NEGATIVE (NEGATIVE)
[2023-03-06] MEDS ORDERED: ONDANSETRON 4 MG/2 ML VIAL IV PRN (00:38)
[2023-03-06] MEDS ORDERED: ACETAMINOPHEN 500 MG TAB PO PRN (00:38)
--- NOTE | 2023-03-06 00:39 | EDPHYS ---
Physician Documentation [facility] [place] Name: Brenden Kay Age: 42 yrs Sex: Male : 1980 Arrival Date: 03/05/2023 Time: 22:09 Bed 20 Private MD: ED Physician John Greco HPI: 03/05 23:26 This 42 yrs old Black Male presents to ER via Ambulatory with complaints of Shortness kb Of Breath. 23:26 Patient reports cough, congestion and shortness of breath that started 6 days ago. kb Reports fever at the onset of symptoms but that has resolved. States he went [place] and his oxygen saturation was 82% so they told him to come here. Patient reports history of COPD and pneumonia. States this feels similar to when he had pneumonia in the past.. Historical: - Allergies: 22:27 PENICILLINS; kl - Home Meds: 22:27 Atrovent Inhl [Active]; Albuterol Inhl [Active]; Lasix Oral [Active]; kl - PMHx: 22:27 Pneumonia; Chronic obstructive lung disease; kl - PSHx: 22:27 None; kl - Immunization history:: Adult Immunizations not immunized. - Social history:: Smoking status: Patient/guardian denies using tobacco, Stopped _ months ago 3. ROS: 23:26 Abdomen/GI: Negative for abdominal pain, nausea, vomiting, diarrhea, and constipation, kb 23:26 Constitutional: Positive for fever, 23:26 Respiratory: Positive for cough, shortness of breath, 23:26 All other systems are negative, Exam: 23:26 Constitutional: This is a well developed, well nourished patient who is awake, alert, kb and in no acute distress. Head/Face: Normocephalic, atraumatic. ENT: Moist Mucous membranes Cardiovascular: Regular rate Abdomen/GI: Soft, non-tender. No distention Skin: Warm, dry with normal turgor. Normal color. MS/ Extremity: Pulses equal, no cyanosis. Neurovascular intact. Full, normal range of motion. Neuro: Awake and alert, GCS 15, oriented to person, place, time, and situation. Moves all extremities. Normal gait. 23:26 Respiratory: the patient does not display signs of respiratory distress, Respirations: normal, Breath sounds: wheezing: expiratory that is mild, is heard in the right lower lobe and right posterior lower lobe, Vital Signs: 22:23 BP 149 / 80; Pulse 88; Resp 22; Temp 98(TE); kl 22:23 Pulse 88; Pulse Ox 87% on R/A; kl 03/06 00:00 BP 160 / 73; Pulse 74; Resp 16; Pulse Ox 93% on 2 lpm NC; jb4 01:45 BP 140 / 67; Pulse 87; Resp 20; Pulse Ox 91% on 2 lpm NC; jb4 MDM: 03/05 22:18 Patient medically screened. kb 23:26 Differential diagnosis: Chronic Obstructive Pulmonary Disease Flu, COVID, pneumonia. kb Data reviewed: vital signs, nurses notes. 03/06 00:37 Consideration of Admission/Observation Patient was admitted/placed on observation. kb Escalation of care including admission/observation considered. Management of patient was discussed with the following: Hospitalist: Dr Magallanes accepts pt for admission. Counseling: I had a detailed discussion with the patient and/or guardian regarding the historical points, exam findings, and any diagnostic results supporting the discharge/admit diagnosis, lab results, radiology results, the need for further work-up and treatment in the hospital. 03/05 22:29 Order name: CBC with Diff; Complete Time: 23:53 kb 03/05 22:29 Order name: Basic Metabolic Panel; Complete Time: 00:03 kb 03/05 22:30 Order name: Troponin HS; Complete Time: 00:03 kb 03/05 23:22 Order name: COVID-19/FLU A+B; Complete Time: 00:37 EDMS 03/06 00:44 Order name: Urinalysis w/ reflexes EDMS 03/06 00:44 Order name: CBC with Automated Diff EDMS 03/06 00:44 Order name: CBC with Automated Diff EDMS 03/06 00:44 Order name: Comprehensive Metabolic Panel EDMS 03/06 00:44 Order name: Comprehensive Metabolic Panel EDMS 03/05 22:30 Order name: XRAY Chest (1 view) kb 03/05 22:30 Order name: EKG; Complete Time: 23:03 kb 03/05 22:29 Order name: IV Start; Complete Time: 22:56 kb 03/05 22:30 Order name: Cardiac monitoring; Complete Time: 00:10 kb 03/05 22:30 Order name: EKG - Nurse/Tech; Complete Time: 00:10 kb 03/05 22:30 Order name: Labs collected and sent; Complete Time: 22:57 kb 03/05 22:30 Order name: O2 Per Protocol; Complete Time: 22:46 kb 03/05 22:30 Order name: O2 Sat Monitoring; Complete Time: 22:46 kb Administered Medications: 03/05 23:09 Drug: MethylPrednisoLONE IVP 125 mg IVP once Route: IVP; Site: right antecubital; jb4 23:09 Drug: Albuterol Inhalation 2.5 mg Inhalation once Route: Inhalation; jb4 23:09 Drug: Ipratropium Inhalation Aerosol 0.5 mg Inhalation once Route: Inhalation; jb4 Disposition: 03/06 00:31 Co-signature as Attending Physician, John Greco MD I agree with the assessment sp4 and plan of care. I reviewed the patient's care provided by Advanced Practice Provider \T\ agree w/ the diagnosis \T\ care plan. I personally saw the pt \T\ performed a substantive portion of the visit, incldng all aspects of the (History/Exam/Medical Decision Making). Disposition Summary: 03/06/23 00:39 Hospitalization Ordered Notes: Hospitalization Status: Observation kb Provider: Dennis Magallanes Condition: Stable kb Problem: new kb Symptoms: are unchanged kb Bed/Room Type: Standard kb Location: Telemetry/MedSurg (observation)(03/06/23 13:19) em1 Room Assignment: 415(03/06/23 13:19) em1 Diagnosis - Influenza due to identified novel influenza A virus - B kb - COPD/ Chronic obstructive pulmonary disease with (acute) exacerbation kb - Hypoxia kb Forms: - Medication Reconciliation Form kb - SBAR form kb - Leadership Thank You Letter kb Signatures: Dispatcher [employer] EDMS Mariann Woodall, SÁNCHEZ BLEDSOE-Cande Burris RN Alonso Morales em1 Jhonny Israel RN RN jb4 Potepalov, Sergey, MD MD sp4 Corrections: (The following items were deleted from the chart) 03/05 23:22 23:03 Influenza Screen (A \T\ B)+BA.LAB.BRZ ordered. EDMS EDMS 23:22 23:03 SARS-COV-2 RT PCR+MOL.LAB.BRZ ordered. EDMS EDMS 03/06 00:38 00:37 Counseling: I had a detailed discussion with the patient and/or guardian elver regarding the historical points, exam findings, and any diagnostic results supporting the discharge/admit diagnosis, lab results, radiology results, the need for outpatient follow up, a family practitioner, to return to the emergency department if symptoms worsen or persist or if there are any questions or concerns that arise at home, elver :47 00:39 Telemetry/MedSurg (observation) elver :47 00:39 elver 13:19 01:47 [facility] ER HOLD kl em1 13:19 01:47 [facility]- em1
--- NOTE | 2023-03-06 00:39 | ER ---
Nurse's Notes [facility] Name: Brenden Kay Age: 42 yrs Sex: Male : 1980 Arrival Date: 03/05/2023 Time: 22:09 Bed 20 Private MD: Diagnosis: Influenza due to identified novel influenza A virus-B;COPD/ Chronic obstructive pulmonary disease with (acute) exacerbation;Hypoxia Presentation: 03/05 22:23 Chief complaint: Patient states: SOB cough congestion x 6 days. Coronavirus screen: Vaccine status: Patient reports receiving the 1st dose of the Covid vaccine. Patient reports having had a previously documented Covid positive illness. x 3. Ebola Screen: Patient negative for fever greater than or equal to 101.5 degrees Fahrenheit, and additional compatible Ebola Virus Disease symptoms. Initial Sepsis Screen: Does the patient meet any 2 criteria? No. Patient's initial sepsis screen is negative. Does the patient have a suspected source of infection? Yes: Productive cough/pneumonia. Risk Assessment: Do you want to hurt yourself or someone else? Patient reports no desire to harm self or others. 22:23 Method Of Arrival: Ambulatory 22:23 Acuity: FRANCESCO 3 Triage Assessment: 22:29 General: Appears uncomfortable, Behavior is cooperative. Pain: Denies pain. Respiratory: Reports shortness of breath at rest on exertion Onset: The symptoms/episode began/occurred gradually, the patient has moderate shortness of breath. Historical: - Allergies: 22:27 PENICILLINS; - Home Meds: 22:27 Atrovent Inhl [Active]; Albuterol Inhl [Active]; Lasix Oral [Active]; kl - PMHx: 22:27 Pneumonia; Chronic obstructive lung disease; - PSHx: 22:27 None; kl - Immunization history:: Adult Immunizations not immunized. - Social history:: Smoking status: Patient/guardian denies using tobacco, Stopped _ months ago 3. Screenin/07 01:57 [facility] ED Fall Risk Assessment (Adult) History of falling in the last 3 months, jb4 including since admission No falls in past 3 months (0 pts) Confusion or Disorientation No (0 pts) Score/Fall Risk Level 0 - 2 = Low Risk Oriented to surroundings, Maintained a safe environment. Abuse screen: Denies threats or abuse. Nutritional screening: No deficits noted. Tuberculosis screening: No symptoms or risk factors identified. Assessment: 03/05 22:35 General: Appears in no apparent distress. uncomfortable, Behavior is calm, cooperative, jb4 appropriate for age. Pain: Denies pain. Neuro: Level of Consciousness is awake, alert, obeys commands, Oriented to person, place, time, situation. Cardiovascular: Patient's skin is warm and dry. Respiratory: Airway is patent Respiratory effort is even, unlabored, Respiratory pattern is regular, symmetrical. GI: No signs and/or symptoms were reported involving the gastrointestinal system. : No signs and/or symptoms were reported regarding the genitourinary system. EENT: No signs and/or symptoms were reported regarding the EENT system. Derm: Skin is intact, Skin is dry, Skin is normal, Skin temperature is warm. Musculoskeletal: Circulation, motion, and sensation intact. Range of motion: intact in all extremities. 23:00 Reassessment: Patient appears in no apparent distress at this time. Patient and/or jb4 family updated on plan of care and expected duration. Pain level reassessed. Patient is alert, oriented x 3, equal unlabored respirations, skin warm/dry/pink. 03/06 00:00 Reassessment: Patient appears in no apparent distress at this time. Patient and/or jb4 family updated on plan of care and expected duration. Pain level reassessed. Patient is alert, oriented x 3, equal unlabored respirations, skin warm/dry/pink. 01:00 Reassessment: Patient appears in no apparent distress at this time. Patient and/or jb4 family updated on plan of care and expected duration. Pain level reassessed. Patient is alert, oriented x 3, equal unlabored respirations, skin warm/dry/pink. 01:56 Reassessment: Patient appears in no apparent distress at this time. Patient and/or jb4 family updated on plan of care and expected duration. Pain level reassessed. Patient is alert, oriented x 3, equal unlabored respirations, skin warm/dry/pink. Vital Signs: 03/05 22:23 BP 149 / 80; Pulse 88; Resp 22; Temp 98(TE); kl 22:23 Pulse 88; Pulse Ox 87% on R/A; kl 03/06 00:00 BP 160 / 73; Pulse 74; Resp 16; Pulse Ox 93% on 2 lpm NC; jb4 01:45 BP 140 / 67; Pulse 87; Resp 20; Pulse Ox 91% on 2 lpm NC; jb4 ED Course: 03/05 22:14 Patient arrived in ED. mr 22:18 Mariann Woodall FNP-C is [facility]. kb 22:18 John Greco MD is Attending Physician. kb 22:27 Triage completed. kl 23:29 XRAY Chest (1 view) In Process Unspecified. EDMS 03/06 00:24 Jhonny Israel, RN is Primary Nurse. jb4 00:39 Dennis Magallanes MD is Hospitalizing Provider. kb 01:57 Patient has correct armband on for positive identification. Bed in low position. Call jb4 light in reach. Side rails up X 1. 01:57 No provider procedures requiring assistance completed. Patient admitted, IV remains in jb4 place. 07:05 Provided Education on: ADMISSION. db Administered Medications: 03/05 23:09 Drug: MethylPrednisoLONE IVP 125 mg IVP once Route: IVP; Site: right antecubital; jb4 23:09 Drug: Albuterol Inhalation 2.5 mg Inhalation once Route: Inhalation; jb4 23:09 Drug: Ipratropium Inhalation Aerosol 0.5 mg Inhalation once Route: Inhalation; jb4 Medication: 03/06 07:05 VIS not applicable for this client. db Outcome: 00:39 Decision to Hospitalize by Provider. kb 01:57 Admitted to ER Hold. Please see [facility] for further documentation. jb4 01:57 Condition: stable 01:57 Discharge instructions given to patient, Instructed on the need for admit, Demonstrated understanding of instructions, 14:03 Admitted to Tele accompanied by tech, via stretcher, with oxygen, Report called to ARUNA butt 14:03 Patient left the ED. db Signatures: Dispatcher [employer] EDMS Mariann Woodall FNP-C FNP-Cande Burris, Sirisha Mays RN, [facility] Reg Jhonny Israel, RN FABIO jbLorena Bojorquez RN RN db
[2023-03-06] MEDS ORDERED: GUAIFENESIN/CODEINE 5ML UCUP PO PRN (00:42)
[2023-03-06] MEDS: METHYLPREDNISOLONE 40 MG INJ IV SCH ×3 (01:00→16:06)
--- NOTE | 2023-03-06 01:34 | P.HP ---
Certification for Inpatient Patient admitted to: Inpatient With expected LOS: >2 Midnights Practitioner: I am a practitioner with admitting privileges, knowledge of patient current condition, hospital course, and medical plan of care. Services: Services provided to patient in accordance with Admission requirements found in Title 42 Section 412.3 of the Code of Federal Regulations Patient History Date of Service: 03/06/23 Reason for admission: SOB History of Present Illness: 42 yrs old AAM with past medical history of COPD, and CHF, obesity who came to ER with shortness of breath which has been going on for the last 1 week and has been progressively worsening. [place]. Started having fever and upper respiratory tract like symptoms 7 days ago and has been progressively worsening. He was evaluated in outside and found to have saturation of 82% and was instructed him to come to our ER for admission . Patient also complains of cough which is productive with mucoid expectoration associated with congestion and shortness of breath which is worse with minimal exertion. Denies any chest pain. Patient was assessed in the ER and was found to have influenza B And COPD exacerbation and was admitted for further management Home medications list reviewed: Yes - Past Medical/Surgical History Past Medical History: Reviewed- Non-Contributory -: COPD Past Surgical History: Reviewed- Non-Contributory - Family History Family History: Reviewed- Non-Contributory - Social History Smoking Status: Current some day smoker Review of Systems 10-point ROS is otherwise unremarkable General: Fever, Sweats, Weakness, Malaise Eyes: Unremarkable ENT: Unremarkable Respiratory: Cough, Shortness of Breath Cardiovascular: Edema Gastrointestinal: Unremarkable Genitourinary: Unremarkable Musculoskeletal: Unremarkable Neurological: Unremarkable Physical Examination - Vital Signs Temperature: 99.8 F Blood Pressure: 142/78 Pulse: 78 Respirations: 18 Pulse Ox (%): 91 - Physical Exam General: Alert, Oriented x3, Mild distress, Obese HEENT: Atraumatic, Normocephalic Neck: Supple, No Thyromegaly Respiratory: Diminished, Crackles/rales, Expiratory wheezes Cardiovascular: Regular rate/rhythm, Normal S1 S2, No murmurs Capillary refill: <2 Seconds Gastrointestinal: Soft and benign, Non-distended, W/out hepatosplenomegaly Musculoskeletal: No clubbing, No swelling Integumentary: No rashes, No breakdown Neurological: Normal speech, Normal strength at 5/5 x4 extr, Normal tone, Sensa tion intact, Cranial nerves 3-12 intact Lymphatics: No axilla or inguinal lymphadenopathy - Studies Laboratory Data (last 24 hrs) 03/05/23 03/05/23 22:54 22:54 WBC 8.30 Hgb 13.5 L Hct 41.1 Plt Count 220 Sodium 133 L Potassium 3.6 BUN 9 Creatinine 1.05 Glucose 136 H Assessment and Plan - Problems (Diagnosis) (1) COPD exacerbation Current Visit: Yes Status: Acute Plan: Monitor on telemetry Start on bronchodilators Start also on steroids Continuous pulse oximetry Antitussives (2) Acute hypoxic respiratory failure Current Visit: Yes Status: Acute Plan: Oxygen supplementation We will try to wean down oxygen requirement Continue steroids and bronchodilators (3) Influenza B Current Visit: Yes Status: Acute Plan: Influenza B is positive Started on Tamiflu Supportive management with antitussives and pain control (4) Obesity Current Visit: Yes Status: Chronic Plan: Advise lifestyle modification Discharge Plan: Home Plan to discharge in: 48 Hours - Advance Directives Does patient have a Living Will: No Does patient have a Durable POA for Healthcare: No - Code Status/Comfort Care Code Status: Full Code Time Spent Managing Pts Care (In Minutes): 45
[2023-03-06 02:06] VITALS: BMI 55.7
[2023-03-06] MEDS: IPRATROPIUM BROM 0.5MG/2.5ML NEB SCH ×4 (02:20→19:55)
[2023-03-06] MEDS: ALBUTEROL 2.5 MG/3 ML NEB SOL NEB SCH ×4 (02:20→19:55)
[2023-03-06] MEDS ORDERED: POTASSIUM 25 MEQ EFFERV TAB PO ONE (08:00)
[2023-03-06] MEDS ORDERED: ALBUTEROL 2.5 MG/3 ML NEB SOL ONE ×2 (08:04→13:49)
[2023-03-06] MEDS ORDERED: IPRATROPIUM BROM 0.5MG/2.5ML ONE ×2 (08:04→13:49)
[2023-03-06] MEDS: OSELTAMIVIR 75 MG CAP PO SCH ×2 (09:00→19:23)
[2023-03-06] MEDS: ENOXAPARIN 40 MG/0.4 ML SQ SCH (09:00)
--- NOTE | 2023-03-06 10:22 | RAD REPORT ---
EXAM DESCRIPTION: RAD - Chest Single View - 03/05/2023 11:27 pm CLINICAL HISTORY: Cough;COPD. COMPARISON: None. TECHNIQUE: Single view AP chest radiograph(s). FINDINGS: Mild diffuse pulmonary interstitial prominence. No consolidation identified. No pleural ef fusion. No pneumothorax. Nonenlarged cardiomediastinal silhouette. No significant osseous abnormality . IMPRESSION: Mild diffuse pulmonary interstitial prominence. No consolidation identified. Electronically signed by: Rochelle Rodrigez MD 03/05/2023 11:33 PM [employer] OPERATOR Due to temporary technical issues with the PACS/Fluency reporting system, reports are being signed by the in house radiologist without review as a courtesy to ensure prompt reporting. The interpreting r adiologist is fully responsible for the content of the report.
[2023-03-06] MEDS ORDERED: INFLUENZA VACCINE (for 6+ mo) 0.5 ML DOSE IMVAC ONE (12:00)
--- NOTE | 2023-03-06 12:31 | P.PN ---
Subjective Date of Service: 03/06/23 Chief Complaint: SOB Pt is resting comfortably in bed. He is using 4L BNC, but he uses 2L at home. Getting steroid and tamiflu. No complaints. Review of Systems 10-point ROS is otherwise unremarkable General: Unremarkable Eyes: Unremarkable ENT: Unremarkable Respiratory: Shortness of Breath, SOB with Excertion Cardiovascular: Unremarkable Gastrointestinal: Unremarkable Genitourinary: Unremarkable Musculoskeletal: Unremarkable Integumentary: Unremarkable Neurological: Unremarkable Lymphatics: Unremarkable Physical Examination - Vital Signs Temperature: 96.9 F Blood Pressure: 131/69 Pulse: 61 Respirations: 16 Pulse Ox (%): 95 - Physical Exam General: Alert, In no apparent distress, Oriented x3, Cooperative, Obese (Morbidly obese) HEENT: Atraumatic, Normocephalic, PERRLA Neck: Supple, 2+ carotid pulse no bruit Respiratory: Clear to auscultation bilaterally, Normal air movement Cardiovascular: Normal pulses, Normal S1 S2, Edema Capillary refill: <2 Seconds Gastrointestinal: Normal bowel sounds, Soft and benign, Non-distended Musculoskeletal: No clubbing, No swelling Integumentary: No rashes, No breakdown Neurological: Normal gait, Normal speech, Normal strength at 5/5 x4 extr Lymphatics: No axilla or inguinal lymphadenopathy - Studies Laboratory Data (last 24 hrs) 03/05/23 03/05/23 22:54 22:54 WBC 8.30 Hgb 13.5 L Hct 41.1 Plt Count 220 Sodium 133 L Potassium 3.6 BUN 9 Creatinine 1.05 Glucose 136 H Assessment And Plan - Plan Flu B: Will continue tamiflu and oxygen. Acute COPD exacerbation: Due to Flu. Will continue solumedrol, Tamiflu and 4L BNC. Consulted pulm. Pt uses 2L BNC at home. Acute resp failure with hypsoxia; Due to Flu B and COPD. Will continue treatment listed above. Hyponatremia: Na is 133. Will monitor NA level. Morbid obesity: Pt was advised to lose weight. Discharge Plan: Home Plan to discharge in: 24 Hours - Code Status/Comfort Care Code Status Assessed: Yes Code Status: Full Code
[2023-03-06] MEDS ORDERED: POTASSIUM CL SA 10 MEQ TAB PO ONE (15:00)
[2023-03-06 17:02] LABS: Specific Gravity 1.018 (1.005-1.030); Urine Bacteria None Seen /HPF (<20); Urine Bilirubin NEGATIVE (Negative); Urine Blood Negative (Negative); Urine Clarity Clear (Clear); Urine Color Light-Yellow (Yellow); Urine Glucose NEGATIVE (Negative); Urine Mucus Slight /HPF (None Seen); Urine Protein TRACE (Negative); Urine RBC <5 /HPF (None Seen); Urine Urobilinogen Normal (Normal); Urine pH 6.5 (5.0-7.0)
[2023-03-07] MEDS: METHYLPREDNISOLONE 40 MG INJ IV SCH ×3 (00:20→16:07)
[2023-03-07] MEDS: ALBUTEROL 2.5 MG/3 ML NEB SOL NEB SCH ×4 (01:18→19:33)
[2023-03-07] MEDS: IPRATROPIUM BROM 0.5MG/2.5ML NEB SCH ×4 (01:18→19:33)
[2023-03-07] MEDS: ENOXAPARIN 40 MG/0.4 ML SQ SCH (07:22)
[2023-03-07] MEDS: OSELTAMIVIR 75 MG CAP PO SCH ×2 (07:22→19:46)
[2023-03-07 07:41] LABS: Absolute Lymphocytes (CBC) 1.8 K/uL (0.7-4.9); Hematocrit 41.3 % (39.6-49.0); Lymphocytes % 11.1 % (15.3-44.8); Platelets 252 thou/uL (152-406)
[2023-03-07 08:01] LABS: Albumin 2.5 g/dL (3.4-5.0); Bilirubin Total 0.3 mg/dL (0.2-1.0); Potassium 4.2 mEq/L (3.5-5.1)
--- NOTE | 2023-03-07 12:45 | P.PN ---
Subjective Date of Service: 03/07/23 Chief Complaint: SOB Pt is resting comfortably in bed. He is using 2L BNC and he uses 2L at home. Getting steroid and tamiflu. He will need oxygen that will last through out his drive to [place]. No complaints. Review of Systems 10-point ROS is otherwise unremarkable General: Unremarkable Eyes: Unremarkable ENT: Unremarkable Respiratory: Unremarkable Cardiovascular: Unremarkable Gastrointestinal: Unremarkable Genitourinary: Unremarkable Musculoskeletal: Unremarkable Integumentary: Unremarkable Neurological: Unremarkable Lymphatics: Unremarkable Physical Examination - Vital Signs Temperature: 97.1 F Blood Pressure: 117/69 Pulse: 63 Respirations: 20 Pulse Ox (%): 95 - Physical Exam General: In no apparent distress, Oriented x3, Cooperative HEENT: Atraumatic, Normocephalic, PERRLA Neck: Supple, 2+ carotid pulse no bruit Respiratory: Clear to auscultation bilaterally, Normal air movement Cardiovascular: No edema, Normal pulses, Normal S1 S2 Capillary refill: <2 Seconds Gastrointestinal: Normal bowel sounds, Soft and benign, Non-distended Musculoskeletal: No clubbing, No swelling Integumentary: No rashes, No breakdown Neurological: Normal gait, Normal speech, Normal strength at 5/5 x4 extr Lymphatics: No axilla or inguinal lymphadenopathy Assessment And Plan - Plan Flu B: Will continue tamiflu and oxygen. Acute COPD exacerbation: Due to Flu. Will continue solumedrol, Tamiflu and 2L BNC. Consulted pulm. Pt uses 2L BNC at home.Pt need home oxygen for his road trip. Acute resp failure with hypoxia: Due to Flu B and COPD. Will continue treatment listed above. Hyponatremia: Na is 134. Will monitor NA level. Morbid obesity: Pt was advised to lose weight. Dispo: Consulted [employer] for home oxygen. DVT ppx: SCD Discharge Plan: Home Plan to discharge in: 24 Hours - Code Status/Comfort Care Code Status Assessed: Yes
--- NOTE | 2023-03-07 14:46 | P.DS ---
Admission Date: 03/06/23 Discharge Date: 03/07/23 Disposition: ROUTINE DISCHARGE Discharge Condition: GOOD Reason for Admission: SOB Brief History of Present Illness: 42 yrs old AAM with past medical history of COPD, and CHF, obesity who came to ER with shortness of breath which has been going on for the last 1 week and has been progressively worsening. [place]. Started having fever and upper respiratory tract like symptoms 7 days ago and has been progressively worsening. He was evaluated in outside and found to have saturation of 82% and was instructed him to come to our ER for admission . Patient also complains of cough which is productive with mucoid expectoration associated with congestion and shortness of breath which is worse with minimal exertion. Denies any chest pain. Patient was assessed in the ER and was found to have influenza B And COPD exacerbation and was admitted for further management Hospital Course: Pt is a 42 yrs old AAM with past medical history of COPD, and CHF, and morbid obesity who came to ER with fever and shortness of breath for 1 week. The SOB progressively worsened while visiting [place] from [place]. He was found to have saturation of 82% and was instructed him to come to our ER for admission. he also complained of cough which is productive with mucoid expectoration. On admission, lab studies showed positive influenza B. He was admitted for treatment of acute resp failure with hypoxia due to Flu B and acute COPD exacerbation. We gave steroid, duoneb, oxygen, and tamiflu. His oxygen requirement improved from 4L to 2L while at rest. Pt did exercise oximetry and he qualified for home oxygen. We discharged pt with home oxygen, prednisone taper and tamiflu. Pt was advised to lose weight. We also monitored elect rolytes. Pt was in NAD prior to discharge. Vital Signs/Physical Exam: Temp Pulse Resp BP Pulse Ox 97.1 F 63 20 117/69 95 03/07/23 12:49 03/07/23 12:49 03/07/23 12:49 03/07/23 12:49 03/07/23 12:49 Laboratory Data at Discharge: WBC 15.80 thou/uL (4.3-10.9) H 03/07/23 07:21 Hgb 13.7 g/dL (13.6-17.9) 03/07/23 07:21 Hct 41.3 % (39.6-49.0) 03/07/23 07:21 Plt Count 252 thou/uL (152-406) 03/07/23 07:21 Sodium 134 mEq/L (136-145) L 03/07/23 07:21 Potassium 4.2 mEq/L (3.5-5.1) 03/07/23 07:21 BUN 14 mg/dL (7-18) 03/07/23 07:21 Creatinine 0.83 mg/dL (0.70-1.30) 03/07/23 07:21 Glucose 193 mg/dL (74-106) H 03/07/23 07:21 Total Bilirubin 0.3 mg/dL (0.2-1.0) 03/07/23 07:21 AST 19 U/L (15-37) 03/07/23 07:21 ALT 24 U/L (16-61) 03/07/23 07:21 Alkaline Phosphatase 106 U/L (45-117) 03/07/23 07:21 Home Medications: Albuterol Inhaler [Ventolin Inhaler*] 2 puff IH Q6H PRN 03/06/23 Doxycycline Hyclate 1 cap PO DAILY 03/06/23 Furosemide 1 tab PO DAILY 03/06/23 Ipratropium [place] [Atrovent Hfa] 2 puff IH Q6H PRN 03/06/23 Oseltamivir [Tamiflu*] 75 mg PO BID 4 Days #8 cap 03/07/23 Prednisone [Sterapred Ds] 30 mg PO DAILY 3 Days #9 tab 03/07/23 predniSONE [Deltasone] 10 mg PO DAILY 3 Days #3 tab 03/07/23 predniSONE [Deltasone] 40 mg PO DAILY 3 Days #3 tab 03/07/23 predniSONE [Prednisone] 20 mg PO DAILY 3 Days #3 tab 03/07/23 New Medications: predniSONE [Prednisone] 20 mg PO DAILY 3 Days #3 tab predniSONE [Deltasone] 40 mg PO DAILY 3 Days #3 tab predniSONE [Deltasone] 10 mg PO DAILY 3 Days #3 tab Prednisone [Sterapred Ds] 30 mg PO DAILY 3 Days #9 tab Oseltamivir [Tamiflu*] 75 mg PO BID 4 Days #8 cap Physician Discharge Instructions: Continue ad gaby activity as tolerated. Take tamiflu and prednisone taper as prescribed. Wear 2L of home oxygen all the time. Follow up with PCP and Checking Clerk within 2 week. Lose some weight.
[2023-03-08] MEDS: IPRATROPIUM BROM 0.5MG/2.5ML NEB SCH ×4 (00:39→19:25)
[2023-03-08] MEDS: ALBUTEROL 2.5 MG/3 ML NEB SOL NEB SCH ×4 (00:39→19:25)
[2023-03-08] MEDS: METHYLPREDNISOLONE 40 MG INJ IV SCH ×3 (00:41→16:27)
[2023-03-08] MEDS: ENOXAPARIN 40 MG/0.4 ML SQ SCH (07:40)
[2023-03-08] MEDS: OSELTAMIVIR 75 MG CAP PO SCH ×2 (07:41→22:00)
[2023-03-08 08:44] LABS: Hematocrit 40.6 % (39.6-49.0); Lymphocytes % 5.2 % (15.3-44.8); MCV 85.7 fL (80-100); MPV 8.3 fL (7.6-11.3); Platelets 300 thou/uL (152-406); RBC Red Blood Cell Count 4.74 M/uL (4.33-5.43)
[2023-03-08 09:02] LABS: Potassium 4.5 mEq/L (3.5-5.1)
[2023-03-08 10:11] LABS: Blood Morphology Comment NOT SEEN (NOT SEEN); Platelet Estimate ADEQ; White Blood Cell Scan OK (OK)
--- NOTE | 2023-03-08 10:24 | P.PN ---
Subjective Date of Service: 03/08/23 Chief Complaint: SOB Pt is resting comfortably in bed. He is using 2L BNC and he uses 2L at home. Getting steroid and tamiflu. He will need oxygen that will last through out his drive to [place]. Pt cannot afford the deposit for home oxygen. Will wean off oxygen. No complaints. Review of Systems 10-point ROS is otherwise unremarkable General: Unremarkable Eyes: Unremarkable ENT: Unremarkable Respiratory: Unremarkable Cardiovascular: Unremarkable Gastrointestinal: Unremarkable Genitourinary: Unremarkable Musculoskeletal: Unremarkable Integumentary: Unremarkable Neurological: Unremarkable Lymphatics: Unremarkable Physical Examination - Vital Signs Temperature: 97.1 F Blood Pressure: 145/77 Pulse: 54 Respirations: 18 Pulse Ox (%): 99 - Physical Exam General: Alert, In no apparent distress, Oriented x3, Obese HEENT: Atraumatic, Normocephalic, PERRLA Neck: Supple, 2+ carotid pulse no bruit Respiratory: Clear to auscultation bilaterally, Normal air movement Cardiovascular: No edema, Normal pulses, Regular rate/rhythm, Normal S1 S2 Capillary refill: <2 Seconds Gastrointestinal: Normal bowel sounds, Soft and benign, Non-distended Musculoskeletal: No clubbing, No swelling Integumentary: No rashes, No breakdown Neurological: Normal gait, Normal speech, Normal strength at 5/5 x4 extr Lymphatics: No axilla or inguinal lymphadenopathy Assessment And Plan - Plan Flu B: Will continue tamiflu and oxygen. Acute COPD exacerbation: Due to Flu. Will continue solumedrol, Tamiflu and 2L BNC. Consulted pulm. Pt uses 2L BNC at home. Pt need home oxygen for his road trip. He is not able to afford the down payment for home oxygen. Will try to wean him off oxygen. Acute resp failure with hypoxia: Due to Flu B and COPD. Will continue treatment listed above. Leukocytosis: Due to steroid. Will monitor WBC, 19.6. Hyponatremia: Na is 136. Will monitor NA level. Morbid obesity: Pt was advised to lose weight. Dispo: Consulted case sealer for home oxygen. DVT ppx: SCD
[2023-03-08 10:53] LABS: Magnesium 2.7 mg/dL (1.6-2.4); Phosphorus 3.1 mg/dL (2.5-4.9)
[2023-03-09] MEDS: METHYLPREDNISOLONE 40 MG INJ IV SCH ×3 (00:45→20:28)
[2023-03-09] MEDS: IPRATROPIUM BROM 0.5MG/2.5ML NEB SCH ×4 (01:31→19:05)
[2023-03-09] MEDS: ALBUTEROL 2.5 MG/3 ML NEB SOL NEB SCH ×4 (01:31→19:05)
[2023-03-09 07:57] LABS: Absolute Lymphocytes (CBC) 0.9 K/uL (0.7-4.9); Hematocrit 38.7 % (39.6-49.0); Lymphocytes % 5.3 % (15.3-44.8); MCV 85.6 fL (80-100); MPV 8.3 fL (7.6-11.3); Platelets 302 thou/uL (152-406); RBC Red Blood Cell Count 4.52 M/uL (4.33-5.43)
[2023-03-09 08:06] LABS: Potassium 4.4 mEq/L (3.5-5.1)
[2023-03-09] MEDS: INSULIN GLARGINE 100 UNIT/ML SQ SCH (08:12)
[2023-03-09] MEDS: ENOXAPARIN 40 MG/0.4 ML SQ SCH (08:12)
[2023-03-09] MEDS: OSELTAMIVIR 75 MG CAP PO SCH ×2 (08:12→20:27)
--- NOTE | 2023-03-09 11:16 | P.PN ---
Subjective Date of Service: 03/09/23 Chief Complaint: SOB Pt is resting comfortably in bed. He is using 2L BNC. Pt uses 2L at home. Getting steroid and tamiflu. He will need oxygen that will last through out his drive to [place]. Pt could not afford the deposit for home oxygen. Will try to wean him off oxygen. No complaints. Review of Systems 10-point ROS is otherwise unremarkable General: Unremarkable Eyes: Unremarkable ENT: Unremarkable Respiratory: Unremarkable Cardiovascular: Unremarkable Gastrointestinal: Unremarkable Genitourinary: Unremarkable Musculoskeletal: Unremarkable Integumentary: Unremarkable Neurological: Unremarkable Lymphatics: Unremarkable Physical Examination - Vital Signs Temperature: 97.0 F Blood Pressure: 141/70 Pulse: 50 Respirations: 16 Pulse Ox (%): 96 Assessment And Plan - Plan Flu B: Will continue tamiflu and oxygen. Acute COPD exacerbation: Due to Flu. Will continue solumedrol, Tamiflu and 2L BNC. Consulted pulm. Will switch to prednisone tomorrow. Pt uses 2L BNC at home. Pt need home oxygen for his road trip to [place]. He is not able to afford the down payment for home oxygen. Will try to wean him off oxygen. Acute resp failure with hypoxia: Due to Flu B and COPD. Will continue treatment listed above. Leukocytosis: Due to steroid. Will monitor WBC, 16.3 <- 19.6. Hyponatremia: Na is 133. Will monitor NA level. Hyperglycemia: Due to steroid. Will continue accuchek and SSI. Morbid obesity: Pt was advised to lose weight. Dispo: Consulted casey saw operator for home oxygen. DVT ppx: SCD
[2023-03-09] MEDS ORDERED: METHYLPREDNISOLONE 40 MG INJ IV SCH (12:00)
[2023-03-10] MEDS: IPRATROPIUM BROM 0.5MG/2.5ML NEB SCH ×4 (01:48→19:08)
[2023-03-10] MEDS: ALBUTEROL 2.5 MG/3 ML NEB SOL NEB SCH ×4 (01:48→19:08)
[2023-03-10 06:18] LABS: Absolute Lymphocytes (CBC) 0.8 K/uL (0.7-4.9); Hematocrit 39.8 % (39.6-49.0); Lymphocytes % 5.1 % (15.3-44.8); MCV 86.6 fL (80-100); MPV 8.1 fL (7.6-11.3); Platelets 339 thou/uL (152-406)
[2023-03-10 06:21] LABS: Potassium 4.8 mEq/L (3.5-5.1)
--- NOTE | 2023-03-10 07:50 | P.PN ---
Subjective Date of Service: 03/10/23 Chief Complaint: SOB Subjective: No new changes, Improving - Physical Exam General: In no apparent distress, Oriented x3, Cooperative HEENT: Atraumatic, Normocephalic, PERRLA Neck: Supple, 2+ carotid pulse no bruit Respiratory: Clear to auscultation bilaterally, Normal air movement Cardiovascular: No edema, Normal pulses, Normal S1 S2 Capillary refill: <2 Seconds Gastrointestinal: Normal bowel sounds, Soft and benign, Non-distended Musculoskeletal: No clubbing, No swelling Integumentary: No rashes, No breakdown Neurological: Normal gait, Normal speech, Normal strength at 5/5 x4 extr Lymphatics: No axilla or inguinal lymphadenopathy Review of Systems Per HPI Physical Examination - Vital Signs Temperature: 97.9 F Blood Pressure: 149/80 Pulse: 51 Respirations: 18 Pulse Ox (%): 94 Assessment And Plan - Plan Assessment and Plan Acute hypoxic respiratory failure Current Visit: Y Status: Acute Plan: Acute resp failure with hypoxia: Due to Flu B and COPD. Will continue treatment listed above. Oxygen supplementation We will try to wean down oxygen requirement Continue steroids and bronchodilators Acute COPD exacerbation: Due to Flu. Will continue solumedrol, Tamiflu and 2L BNC. Consulted pulm. Will switch to prednisone tomorrow. Pt uses 2L BNC at home. Pt need home oxygen for his road trip to [place]. He is not able to afford the down payment for home oxygen. Will try to wean him off oxygen. Dispo: Consulted case maker for home oxygen. - Problems (Diagnosis) COPD exacerbation Current Visit: Yes Status: Acute Plan: Monitor on telemetry Start on bronchodilators Start also on steroids Continuous pulse oximetry Antitussives Influenza B Current Visit: Yes Status: Acute Plan: Influenza B is positive Started on Tamiflu Supportive management with antitussives and pain control Flu B: Will continue tamiflu and oxygen. Leukocytosis: Due to steroid. Will monitor WBC, 16.3 <- 19.6. Start azithromycin and ceftriaxone prophylactic to prevent pneumonia Hyponatremia: Na is 133. Will monitor NA level. Hyperglycemia: Due to steroid. Will continue accuchek and SSI. Obesity Current Visit: Yes Status: Chronic Plan: Advise lifestyle modification Pt was advised to lose weight. Discharge Plan: Home Plan to discharge in: 48 Hours Discharge Plan: Home Plan to discharge in: 48 Hours - Code Status/Comfort Care Code Status: Full Code Physician Review: Patient Assessed, Agree with Above Assessment and Plan Critical Care: No Time Spent Managing PTS Care (In Minutes): 35
[2023-03-10] MEDS: METHYLPREDNISOLONE 40 MG INJ IV SCH (08:47)
[2023-03-10] MEDS: OSELTAMIVIR 75 MG CAP PO SCH ×2 (08:47→20:18)
[2023-03-10] MEDS: INSULIN GLARGINE 100 UNIT/ML SQ SCH (08:48)
[2023-03-10] MEDS: ENOXAPARIN 40 MG/0.4 ML SQ SCH (08:49)
[2023-03-10] MEDS ORDERED: CEFTRIAXONE 1,000 MG in NA CHLORIDE 0.9% 50 ML IVPB SCH (09:00)
[2023-03-10] MEDS ORDERED: AZITHROMYCIN IV 500 MG in NA CHLORIDE 0.9% 250 ML IVPB SCH (09:00)
--- NOTE | 2023-03-10 10:22 | P.DS ---
Admission Date: 03/06/23 Discharge Date: 03/10/23 Disposition: ROUTINE DISCHARGE Discharge Condition: GOOD Reason for Admission: SOB Brief History of Present Illness: 42 yrs old AAM with past medical history of COPD, and CHF, obesity who came to ER with shortness of breath which has been going on for the last 1 week and has been progressively worsening. [place]. Started having fever and upper respiratory tract like symptoms 7 days ago and has been progressively worsening. He was evaluated in outside and found to have saturation of 82% and was instructed him to come to our ER for admission . Patient also complains of cough which is productive with mucoid expectoration associated with congestion and shortness of breath which is worse with minimal exertion. Denies any chest pain. Patient was assessed in the ER and was found to have influenza B And COPD exacerbation and was admitted for further management - Physical Exam General: In no apparent distress, Oriented x3, Cooperative HEENT: Atraumatic, Normocephalic, PERRLA Neck: Supple, 2+ carotid pulse no bruit Respiratory: Clear to auscultation bilaterally, Normal air movement Cardiovascular: No edema, Normal pulses, Normal S1 S2 Capillary refill: <2 Seconds Gastrointestinal: Normal bowel sounds, Soft and benign, Non-distended Musculoskeletal: No clubbing, No swelling Integumentary: No rashes, No breakdown Neurological: Normal gait, Normal speech, Normal strength at 5/5 x4 extr Lymphatics: No axilla or inguinal lymphadenopathy Hospital Course: COPD exaceration, Due to Flu B and COPD. Influenza B is positive Antitussives, Started on Tamiflu We will try to wean down oxygen requirement Continue steroids and bronchodilators Treated with IV solumedrol, Tamiflu and 2L BNC. Consulted pulm. Plan to switch to prednisone after discharge, Dispo: DC Home, patient has O2 PRN at home Continue home albuterol, atrovent inhalers as directed Vital Signs/Physical Exam: Temp Pulse Resp BP Pulse Ox 96.9 F 44 L 14 154/83 H 97 03/10/23 08:00 03/10/23 08:00 03/10/23 08:00 03/10/23 08:00 03/10/23 08:00 Laboratory Data at Discharge: WBC 15.90 thou/uL (4.3-10.9) H 03/10/23 05:10 Hgb 12.7 g/dL (13.6-17.9) L 03/10/23 05:10 Hct 39.8 % (39.6-49.0) 03/10/23 05:10 Plt Count 339 thou/uL (152-406) 03/10/23 05:10 Sodium 132 mEq/L (136-145) L 03/10/23 05:41 Potassium 4.8 mEq/L (3.5-5.1) 03/10/23 05:41 BUN 17 mg/dL (7-18) 03/10/23 05:41 Creatinine 0.98 mg/dL (0.70-1.30) 03/10/23 05:41 Glucose 377 mg/dL (74-106) H 03/10/23 05:41 Phosphorus Cancelled 03/08/23 Unknown Magnesium 2.7 mg/dL (1.6-2.4) H 03/08/23 08:17 Total Bilirubin 0.3 mg/dL (0.2-1.0) 03/07/23 07:21 AST 19 U/L (15-37) 03/07/23 07:21 ALT 24 U/L (16-61) 03/07/23 07:21 Alkaline Phosphatase 106 U/L (45-117) 03/07/23 07:21 Home Medications: Albuterol Inhaler [Ventolin Inhaler*] 2 puff IH Q6H PRN 03/06/23 Doxycycline Hyclate 1 cap PO DAILY 03/06/23 Furosemide 1 tab PO DAILY 03/06/23 Ipratropium [place] [Atrovent Hfa] 2 puff IH Q6H PRN 03/06/23 Oseltamivir [Tamiflu*] 75 mg PO BID 4 Days #8 cap 03/07/23 Prednisone [Sterapred Ds] 30 mg PO DAILY 3 Days #9 tab 03/07/23 predniSONE [Deltasone] 10 mg PO DAILY 3 Days #3 tab 03/07/23 predniSONE [Deltasone] 40 mg PO DAILY 3 Days #3 tab 03/07/23 predniSONE [Prednisone] 20 mg PO DAILY 3 Days #3 tab 03/07/23 New Medications: predniSONE [Prednisone] 20 mg PO DAILY 3 Days #3 tab predniSONE [Deltasone] 40 mg PO DAILY 3 Days #3 tab predniSONE [Deltasone] 10 mg PO DAILY 3 Days #3 tab Prednisone [Sterapred Ds] 30 mg PO DAILY 3 Days #9 tab Oseltamivir [Tamiflu*] 75 mg PO BID 4 Days #8 cap Physician Discharge Instructions: Continue ad gaby activity as tolerated. Take tamiflu and prednisone taper as prescribed. Wear 2L of home oxygen all the time. Follow up with PCP and Instructor Modeling within 2 week. Lose some weight.
[2023-03-10] MEDS ORDERED: ACETAMINOPHEN 500 MG TAB PO PRN (17:46)
[2023-03-10] MEDS ORDERED: GUAIFENESIN/CODEINE 5ML UCUP PO PRN (17:46)
[2023-03-10] MEDS ORDERED: ONDANSETRON 4 MG/2 ML VIAL IV PRN (17:49)
[2023-03-11] MEDS: ALBUTEROL 2.5 MG/3 ML NEB SOL NEB SCH ×2 (00:45→07:31)
[2023-03-11] MEDS: IPRATROPIUM BROM 0.5MG/2.5ML NEB SCH ×2 (00:45→07:30)
[2023-03-11 01:25] VITALS: O2SAT 97
[2023-03-11] MEDS: OSELTAMIVIR 75 MG CAP PO SCH (08:02)
[2023-03-11 08:59] VITALS: BP 139/78; TEMP 96.9
[2023-03-11] MEDS ORDERED: AZITHROMYCIN 250 MG TAB PO SCH ×2 (09:00)
[2023-03-11] MEDS ORDERED: ENOXAPARIN 40 MG/0.4 ML SQ SCH (09:00)
[2023-03-11] MEDS ORDERED: dexAMETHasone 4 MG TAB PO SCH (09:00)
[2023-03-11] MEDS ORDERED: INSULIN GLARGINE 100 UNIT/ML SQ SCH (09:00)
--- NOTE | 2023-03-11 14:05 | EKG ---
Test Date: 2023-03-05 Test Time: 23:55:19 Forestry Consultant: ESTEBAN MEASUREMENT RESULTS: Intervals: Rate: 83 DE: 136 QRSD: 96 QT: 372 QTc: 437 [place]: P: 71 DE: 136 QRS: 72 T: 65 INTERPRETIVE STATEMENTS: Normal sinus rhythm Normal ECG No previous ECG available for comparison Electronically Signed On 03-11-23 13:46:39 ADMINISTRATION DEAN by Adalid Arnold
== END 2023-03-11 11:50 | disposition home or self-care (01) | DRG 193 ==
LOC: ER 22:09 → ERHOLD 03-06 00:38 → 4TH 03-06 13:50
PROVIDERS: ADMIT Family Medicine; ATTEND Hospitalist
PROC: 5A09557 Assistance with Respiratory Ventilation, Greater than 96 Consecutive Hours, Continuous Positive Airway Pressure (ICD-10-PCS; principal; 2023-03-06)
DX: J10.1 Influenza due to other identified influenza virus with other respiratory manifestations (principal); J96.01 Acute respiratory failure with hypoxia; J44.1 Chronic obstructive pulmonary disease with (acute) exacerbation; Z68.43 Body mass index [BMI] 50.0-59.9, adult; E87.1 Hypo-osmolality and hyponatremia; E66.01 Morbid (severe) obesity due to excess calories; D72.829 Elevated white blood cell count, unspecified; F17.200 Nicotine dependence, unspecified, uncomplicated; R73.9 Hyperglycemia, unspecified; Z88.0 Allergy status to penicillin; Z79.52 Long term (current) use of systemic steroids; Z11.52 Encounter for screening for COVID-19; Z99.81 Dependence on supplemental oxygen; Z79.899 Other long term (current) drug therapy
CPT/HCPCS: 0240U; 36415; 71045; 80048; 80053; 81001; 82947; 83735; 84100; 84484; 85025; 93005; 94640; 94660; 94760; 96374; 99285; J0696; J1650; J2920; J2930; J7050; J7613; J7644